=== PATIENT | male | born 1990 | race Caucasian/White ===

== ENCOUNTER 2022-12-19 04:06 | Day surgery (SDC) | payer OTHER ==
[~2022-12-19] VITALS: Ht 193 cm; Wt 80.0 kg
[2022-12-19] VITALS (212 sets, daily range): BP systolic 83–145; BP diastolic 38–75
[2022-12-19 08:40] LABS: BASO% 0.4 % (0-3); HEMATOCRIT 37.1 % (39.0-50.0); HEMOGLOBIN 12.1 g/dl (14.0-18.0); LYMPH% 23.6 % (15-41); MEAN CELL VOLUME 79.4 fL CALC (80.0-100.0); MEAN CORPUSCULAR HGB 25.9 pG CALC (26.0-32.0); MEAN CORPUSCULAR HGB CONC 32.6 g/dL CAL (32.0-36.0); MONO% 9.2 % (2-13); NEUT# 3.65 thou/uL (1.82-7.42); NEUT% 66.8 % (42-76); RED BLOOD COUNT 4.67 mill/uL (4.70-6.10)
[2022-12-19 08:55] LABS: ALBUMIN 5.3 g/dL (3.2-5.0); ALKALINE PHOSPHATASE 83 u/l (38-126); ANION GAP 19 (6-22 (CALC)); BILIRUBIN, TOTAL 1.1 mg/dL (0.2-1.3); BUN 14 mg/dL (9-20); BUN/CREATININE RATIO 19 (12-20 (CALC)); CARBON DIOXIDE 24 mmol/l (22-30); CHLORIDE 102 mmol/l (95-108); CREATININE 0.7 mg/dL (0.7-1.3); GFR FOR AFR.AMER. > 60 ML/MIN (>=60 (CALC)); GFR OTHER RACES > 60 ML/MIN (>=60 (CALC)); POTASSIUM 3.8 mmol/l (3.5-5.1); SGOT/AST 35 u/l (17-59); SODIUM 140 mmol/l (137-146); TOTAL PROTEIN 9.2 g/dL (6.3-8.2)
[2022-12-19] MEDS ORDERED: NALTREXONE50 MG PO (16:17)
[2022-12-19] MEDS ORDERED: CLONIDINE0.1 MG PO (16:17)
[2022-12-19] MEDS ORDERED: KLONOPIN2 MG PO (16:17)
[2022-12-20 03:51] VITALS: BP 119/98
[2022-12-20 06:29] LABS: BASO% 0.1 % (0-3); HEMATOCRIT 37.8 % (39.0-50.0); HEMOGLOBIN 11.9 g/dl (14.0-18.0); IMMATURE GRANULOCYTES 0.3 % (0.0-5.0); LYMPH% 9.8 % (15-41); MEAN CELL VOLUME 81.5 fL CALC (80.0-100.0); MEAN CORPUSCULAR HGB 25.6 pG CALC (26.0-32.0); MEAN CORPUSCULAR HGB CONC 31.5 g/dL CAL (32.0-36.0); MONO% 6.3 % (2-13); NEUT# 6.67 thou/uL (1.82-7.42); NEUT% 83.5 % (42-76); RED BLOOD COUNT 4.64 mill/uL (4.70-6.10); RED CELL DISTRI WIDTH 13.4 % (11.5-15.5)
[2022-12-20 06:50] LABS: ALBUMIN 4.8 g/dL (3.2-5.0); ALKALINE PHOSPHATASE 78 u/l (38-126); BILIRUBIN, TOTAL 0.9 mg/dL (0.2-1.3); BUN 15 mg/dL (9-20); BUN/CREATININE RATIO 18 (12-20 (CALC)); CHLORIDE 110 mmol/l (95-108); CREATININE 0.8 mg/dL (0.7-1.3); GFR FOR AFR.AMER. > 60 ML/MIN (>=60 (CALC)); GFR OTHER RACES > 60 ML/MIN (>=60 (CALC)); MAGNESIUM 2.3 mg/dL (1.6-2.3); SODIUM 144 mmol/l (137-146); TOTAL PROTEIN 8.8 g/dL (6.3-8.2)
[2022-12-20 06:51] LABS: ANION GAP 23 (6-22 (CALC)); CARBON DIOXIDE 15 mmol/l (22-30); SGOT/AST 79 u/l (17-59)
[2022-12-20 10:00] VITALS: BP 112/57
[2022-12-20 12:16] VITALS: BP 119/65
[2022-12-20 16:39] VITALS: BP 129/79
[2022-12-21 04:01] VITALS: BP 136/73
[2022-12-21 04:47] LABS: ALBUMIN 4.9 g/dL (3.2-5.0); ALKALINE PHOSPHATASE 75 u/l (38-126); ANION GAP 20 (6-22 (CALC)); BILIRUBIN, TOTAL 0.9 mg/dL (0.2-1.3); BUN 16 mg/dL (9-20); BUN/CREATININE RATIO 18 (12-20 (CALC)); CHLORIDE 107 mmol/l (95-108); CREATININE 0.9 mg/dL (0.7-1.3); GFR FOR AFR.AMER. > 60 ML/MIN (>=60 (CALC)); GFR OTHER RACES > 60 ML/MIN (>=60 (CALC)); MAGNESIUM 2.3 mg/dL (1.6-2.3); POTASSIUM 3.8 mmol/l (3.5-5.1); SGOT/AST 132 u/l (17-59); SODIUM 145 mmol/l (137-146); TOTAL PROTEIN 8.9 g/dL (6.3-8.2)
[2022-12-21 04:53] LABS: CARBON DIOXIDE 22 mmol/l (22-30)
[2022-12-21 06:30] VITALS: BP 126/72
== END 2022-12-21 08:22 | disposition home or self-care (01) | DRG 897 ==
LOC: ANR 04:06 → MS2 04:06 → ANR 10:00 → MS2 12-20 18:51 → ANR 12-21 08:22
PROVIDERS: ATTEND Anesthesiology Critical Care Medicine
DX: F11.20 Opioid dependence, uncomplicated (principal)
CPT/HCPCS: J0131; J2060; J2354; J3475